=== PATIENT | female | born 1975 | race Caucasian/White ===

== ENCOUNTER 2016-07-19 17:28 | Emergency (ER) | payer MEDICARE | END 2016-07-19 22:20 | disposition home or self-care (01) | LOC: D.ER 17:28 | DX: S93.401A Sprain of unspecified ligament of right ankle, initial encounter (principal); W51.XXXA Accidental striking against or bumped into by another person, initial encounter; Y93.89 Activity, other specified; Y92.89 Other specified places as the place of occurrence of the external cause; F43.10 Post-traumatic stress disorder, unspecified; J45.909 Unspecified asthma, uncomplicated; F17.200 Nicotine dependence, unspecified, uncomplicated ==